=== PATIENT | female | born 1990 | race American Indian/Alaskan Native ===

== ENCOUNTER 2017-01-20 04:23 | Emergency (ER) | payer SELFPAY ==
[2017-01-20] MEDS ORDERED: TYLENOL PO ONE (04:38)
[2017-01-20 05:18] LABS: Basophils % (Auto) 0.2 % (0.0-1.8); Eosinophils % (Auto) 0.6 % (0.0-4.3); Hematocrit 39.3 % (30.3-42.9); Mean Corpuscular HGB Conc 33 % (30-34); Mean Corpuscular Hemoglobin 28 pg (28-32); Mean Corpuscular Volume 84 fl (79-97); Platelet Count 341 K/mm3 (140-440); Red Blood Count 4.65 M/mm3 (3.65-5.03); Red Cell Distribution Width 12.9 % (13.2-15.2); White Blood Count 10.1 K/mm3 (4.5-11.0)
[2017-01-20 05:20] LABS: Alanine Aminotransferase 16 units/L (7-56); Albumin 4.3 g/dL (3.9-5); Albumin/Globulin Ratio 1.2 %; Alkaline Phosphatase 59 units/L (35-129); Anion Gap 18 mmol/L; Bilirubin,Total 0.4 mg/dL (0.1-1.2); Blood Urea Nitrogen 12 mg/dL (7-17); Calcium 9.2 mg/dL (8.4-10.2); Carbon Dioxide 22 mmol/L (22-30); Chloride 102.2 mmol/L (98-107); Glucose 108 mg/dL (65-100); Lipase 14 units/L (13-60); Potassium 3.9 mmol/L (3.6-5.0); Sodium 138 mmol/L (137-145); Total Protein 7.9 g/dL (6.3-8.2)
--- NOTE | 2017-01-20 06:59 | Emergency Department Report ---
HPI - General Chief Complaint: Abdominal Pain Time Seen by Provider: 01/20/17 06:34 - HPI HPI: This is a 26-year-old Afro-[place] female who drove herself in to be seen with complaint of upper abdominal pain that began at 10 PM last night has been constant since. It is a sharp pain and associated with some nausea and vomiting. She denies any fever, vaginal bleeding, vaginal discharge, back pain , dysuria. She is not taken anything for symptoms prior to presentation. She denies having a past medical history. She has a history of migraine headaches. No recent travel or sick contacts at home. ED Past Medical Hx - Past Medical History Previous Medical History?: Yes Hx Headaches / Migraines: Yes Additional medical history: vaginal delivery x 1 - Surgical History Past Surgical History?: No - Social History Smoking Status: Never Smoker Substance Use Type: None - Medications Home Medications: Home Medications Medication Instructions Recorded Confirmed Last Taken Type HYDROcodone/APAP 5-325 [[place] 1 each PO Q6HR PRN #10 tablet 01/20/17 Unknown Rx 5/325] Ondansetron [Zofran Odt] 4 mg PO Q8H PRN #10 tab.rapdis 01/20/17 Unknown Rx ED Review of Systems ROS: Stated complaint: ABD PAIN Other details as noted in HPI Comment: All other systems reviewed and negative Constitutional: denies: chills, fever Eyes: denies: eye pain, eye discharge, vision change ENT: denies: ear pain, throat pain Respiratory: denies: cough, shortness of breath, wheezing Cardiovascular: denies: chest pain, palpitations Gastrointestinal: abdominal pain, nausea, vomiting Genitourinary: denies: urgency, dysuria, discharge Musculoskeletal: denies: back pain, joint swelling, arthralgia Skin: denies: rash, lesions Neurological: denies: headache, weakness, paresthesias Physical Exam - Physical Exam Vital Signs: Vital Signs 01/20/17 01/20/17 01/20/17 02:08 02:10 02:16 Temperature Pulse Rate Respiratory Rate Blood Pressure 101/63 101/63 O2 Sat by Pulse 100 100 100 Oximetry 01/20/17 01/20/17 01/20/17 02:20 02:26 02:30 Temperature Pulse Rate Respiratory Rate Blood Pressure 101/63 101/63 101/63 O2 Sat by Pulse 100 99 99 Oximetry 01/20/17 01/20/17 01/20/17 02:36 02:40 02:46 Temperature Pulse Rate Respiratory Rate Blood Pressure 101/70 101/70 101/70 O2 Sat by Pulse 100 100 100 Oximetry 01/20/17 01/20/17 01/20/17 02:50 02:56 03:00 Temperature Pulse Rate Respiratory Rate Blood Pressure 101/70 101/70 101/70 O2 Sat by Pulse 97 100 100 Oximetry 01/20/17 01/20/17 01/20/17 03:06 04:34 04:42 Temperature 98.2 F Pulse Rate 87 Respiratory 22 Rate Blood Pressure 111/66 154/94 111/66 O2 Sat by Pulse 100 98 88 Oximetry 01/20/17 01/20/17 01/20/17 04:46 04:50 04:56 Temperature Pulse Rate Respiratory Rate Blood Pressure 108/63 108/63 108/63 O2 Sat by Pulse 100 100 89 Oximetry 01/20/17 01/20/17 01/20/17 05:00 06:04 06:05 Temperature Pulse Rate 93 H 78 Respiratory 18 Rate Blood Pressure 108/63 118/78 137/86 O2 Sat by Pulse 97 98 Oximetry 01/20/17 01/20/17 06:11 06:17 Temperature Pulse Rate 84 Respiratory 16 18 Rate Blood Pressure 137/86 O2 Sat by Pulse 100 100 Oximetry Physical Exam: GENERAL: The patient is well-developed well-nourished. HEENT: Normocephalic. Atraumatic. Extraocular motions are intact. Patient has moist mucous membranes. Pupils equal reactive to light bilaterally. NECK: Supple. Trachea is midline. CHEST/LUNGS: Clear to auscultation. There is no respiratory distress noted. HEART/CARDIOVASCULAR: Regular. There is no tachycardia. There is no gallop rub or murmur. ABDOMEN: Abdomen is soft. There is some mild tenderness to palpation to the right upper quadrant of the abdomen. No guarding rebound tenderness. No peritoneal signs with heel strike. Patient has normal bowel sounds. There is no abdominal distention. SKIN: Skin is warm and dry. NEURO: The patient is awake, alert, and oriented. The patient is cooperative. The patient has no focal neurologic deficits. The patient has normal speech. MUSCULOSKELETAL: There is no tenderness or deformity. There is no limitation range of motion. There is no evidence of acute injury. ED Course Vital Signs 01/20/17 01/20/17 01/20/17 02:08 02:10 02:16 Temperature Pulse Rate Respiratory Rate Blood Pressure 101/63 101/63 O2 Sat by Pulse 100 100 100 Oximetry 01/20/17 01/20/17 01/20/17 02:20 02:26 02:30 Temperature Pulse Rate Respiratory Rate Blood Pressure 101/63 101/63 101/63 O2 Sat by Pulse 100 99 99 Oximetry 01/20/17 01/20/17 01/20/17 02:36 02:40 02:46 Temperature Pulse Rate Respiratory Rate Blood Pressure 101/70 101/70 101/70 O2 Sat by Pulse 100 100 100 Oximetry 01/20/17 01/20/17 01/20/17 02:50 02:56 03:00 Temperature Pulse Rate Respiratory Rate Blood Pressure 101/70 101/70 101/70 O2 Sat by Pulse 97 100 100 Oximetry 01/20/17 01/20/17 01/20/17 03:06 04:34 04:42 Temperature 98.2 F Pulse Rate 87 Respiratory 22 Rate Blood Pressure 111/66 154/94 111/66 O2 Sat by Pulse 100 98 88 Oximetry 01/20/17 01/20/17 01/20/17 04:46 04:50 04:56 Temperature Pulse Rate Respiratory Rate Blood Pressure 108/63 108/63 108/63 O2 Sat by Pulse 100 100 89 Oximetry 01/20/17 01/20/17 01/20/17 05:00 06:04 06:05 Temperature Pulse Rate 93 H 78 Respiratory 18 Rate Blood Pressure 108/63 118/78 137/86 O2 Sat by Pulse 97 98 Oximetry 01/20/17 01/20/17 06:11 06:17 Temperature Pulse Rate 84 Respiratory 16 18 Rate Blood Pressure 137/86 O2 Sat by Pulse 100 100 Oximetry ED Medical Decision Making - Lab Data Result diagrams: 01/20/17 04:46 01/20/17 04:46 - Radiology Data Radiology results: report reviewed, image reviewed interpreted by me: Abdominal x-ray shows some nonspecific nonobstructive bowel gas. Right upper quadrant abdominal ultrasound does not show any acute process. - Medical Decision Making 26-year-old female presents with abdominal pain to the upper abdomen as well as some nausea and vomiting since last night around 10 PM. Patient's labs are mostly unremarkable other than some signs of dehydration. The patient is not . There is no signs of infection in the bladder urine, elect to light abnormalities in the patient has normal belly labs including bilirubin, lipase and LFT. Abdominal ultrasound does not show any acute process. Abdominal x- ray shows nonobstructive nonspecific bowel gas. Patient was given some Zofran for nausea with improvement. She was able to pass an oral challenge. She will go home with some pain medication, anti-antiemetics and referrals for primary care. She will return to the ER with any worsening of her symptoms or any acute distress. - Differential Diagnosis past arthritis, colitis, , UTI, cholelithiasis, pancreatitis Critical Care Time: No Critical care attestation.: If time is entered above; I have spent that time in minutes in the direct care of this critically ill patient, excluding procedure time. ED Disposition Clinical Impression: Dehydration Abdominal pain Qualifiers: Abdominal location: upper abdomen, unspecified Qualified Code(s): R10.10 - Upper abdominal pain, unspecified Nausea and vomiting Qualifiers: Vomiting type: unspecified Vomiting Intractability: non-intractable Qualified Code(s): R11.2 - Nausea with vomiting, unspecified Disposition: DISCHARGED TO HOME OR SELFCARE Is pt being admited?: No Condition: Stable Instructions: Abdominal Pain (ED), Acute Nausea and Vomiting (ED), Dehydration (ED) Additional Instructions: Please follow-up with a primary care doctor in the next few days. Increase your oral rehydration. Return to the emergency department with any intractable vomiting, intractable fever, or any acute distress. You've been prescribed a medication that is sedating. Therefore this medication cannot be mixed with alcohol, or taken prior to driving, working, or being responsible for children. Prescriptions: HYDROcodone/APAP 5-325 [[place] 5/325] 1 each PO Q6HR PRN #10 tablet PRN Reason: Pain Ondansetron [Zofran Odt] 4 mg PO Q8H PRN #10 tab.rapdis PRN Reason: Nausea Referrals: PRIMARY CARE, [Primary Care Provider] - 3-5 Days [facility] [Outside] - 3-5 Days [facility] [Outside] - 3-5 Days Time of Disposition: 10:33
--- NOTE | 2017-01-20 07:52 | Ultrasound Report ---
ULTRASOUND ABDOMEN LIMITED INDICATION: RUQ abdominal pain, nausea, vomiting. COMPARISON: None similar. FINDINGS: Right upper quadrant ultrasound suggests slight hepatic coarsening. Normal hepatic contours. No focal suspicious lesions or biliary dilatation. No gallstones or pericholecystic fluid. Slight gallbladder sludge though not excluded. Gallbladder wall thickness is 3-4 mm. CBD is 4.5 mm. Pancreas, IVC and abdominal aorta appear within normal limits. Nonhydronephrotic 11.2 x 4.2 x 4.7 cm right kidney with cortical thickness of 1.4 cm. CONCLUSION: No acute right upper quadrant sonographic abnormality with slightly coarse liver and minimal gallbladder sludge possible. Please correlate. Thank you for the opportunity to participate in this patient's care.
[2017-01-20] MEDS ORDERED: ZOFRAN ODT PO ONE (08:48)
[2017-01-20 09:41] VITALS: BP 133/79
[2017-01-20 09:46] LABS: Bilirubin,Urine NEG (Negative); Blood,Urine SM (Negative); Ketones,Urine 80 mg/dL (Negative); Leukocyte Esterase,Urine NEG (Negative); Mucus,Urine 3+ /HPF; Nitrite,Urine NEG (Negative); Urobilinogen,Urine < 2.0 mg/dL (<2.0)
--- NOTE | 2017-01-20 10:04 | XRay Report ---
ABDOMEN RADIOGRAPHS INDICATION: Abdominal pain. COMPARISON: None similar. FINDINGS: Frontal abdominal radiographs demonstrate nonobstructive bowel gas pattern. Few air-containing small bowel loops in the right lower quadrant measure up to 2.1 cm caliber. No focal suspicious calcifications, pneumatosis or pneumoperitoneum. Clear visualized lung bases. Unremarkable bones. CONCLUSION: Nonobstructive bowel gas pattern, as described. Please correlate. Thank you for the opportunity to participate in this patient's care.
== END 2017-01-20 10:53 | disposition home or self-care (01) ==
LOC: ED 04:23
DX: E86.0 Dehydration (principal); R10.10 Upper abdominal pain, unspecified; G43.909 Migraine, unspecified, not intractable, without status migrainosus
CPT/HCPCS: 36415; 74020; 76705; 80053; 81001; 81025; 83690; 85025; Q0162

== ENCOUNTER 2020-01-02 20:22 | Outpatient (CLI) | payer MEDICAID ==
[2020-01-02 20:34] VITALS: BP 140/75
--- NOTE | 2020-01-02 21:30 | Ultrasound Report ---
ULTRASOUND OBSTETRIC INDICATION / CLINICAL INFORMATION: SROM . Clinical Gestational Age (GA): TECHNIQUE: Limited exam was performed COMPARISON: None available. FINDINGS: There is a single intrauterine . Heart Rate: 154 beats per minute. Position: cephalic. Cervix: closed. Length in cm (if measured): Placenta: and free of the os. Amniotic Fluid Volume: normal Amniotic Fluid Index (JACKI) in cm (9.7): . Maternal Adnexa: No significant abnormality. IMPRESSION: 1. Single, living intrauterine 2. JACKI 9.7 cm Signer Name: Del Pollock MD Signed: 01/02/2020 9:26 PM Workstation Name: [id number]
[2020-01-02 22:16] LABS: Bilirubin,Urine NEG (Negative); Blood,Urine SM (Negative); Color,Urine Yellow (Yellow); Mucus,Urine 1+ /HPF; Protein,Urine <15 mg/dL mg/dL (Negative); Urobilinogen,Urine < 2.0 mg/dL (<2.0)
== END 2020-01-02 21:53 | disposition home or self-care (01) ==
LOC: TRG 20:22
PROVIDERS: ATTEND Obstetrics & Gynecology
DX: O47.02 False labor before 37 completed weeks of gestation, second trimester (principal); Z3A.22 22 weeks gestation of pregnancy
CPT/HCPCS: 59025; 76815; 81001

== ENCOUNTER 2022-06-03 12:42 | Emergency (ER) | payer MEDICAID ==
[2022-06-03 14:09] LABS: Bacteria,Urine 2+ /HPF (Negative); Mucus,Urine 3+ /HPF
[2022-06-03 14:13] LABS: Basophils % (Auto) 0.5 % (0.0-1.8); Eosinophils # (Auto) 0.2 K/mm3 (0.0-0.4); Eosinophils % (Auto) 2.8 % (0.0-4.3); Lymphocytes # (Auto) 2.5 K/mm3 (1.2-5.4); Lymphocytes % (Auto) 44.4 % (13.4-35.0); Mean Corpuscular HGB Conc 32 % (30-34); Mean Corpuscular Volume 84 fl (79-97); Monocytes # (Auto) 0.3 K/mm3 (0.0-0.8); Monocytes % (Auto) 5.5 % (0.0-7.3); Platelet Count 354 K/mm3 (140-440); Red Blood Count 4.39 M/mm3 (3.65-5.03); Red Cell Distribution Width 13.4 % (13.2-15.2)
[2022-06-03 14:34] LABS: Color,Urine Yellow (Yellow)
--- NOTE | 2022-06-03 17:49 | Emergency Department Report ---
ED HPI - General Chief complaint: Vaginal Bleeding Stated complaint: BLEEDING 12 WKS Time Seen by Provider: 06/03/22 17:32 Source: patient Mode of arrival: Ambulatory Limitations: No Limitations - History of Present Illness Initial comments: Patient is a 31-year-old female who presents with pelvic cramping and vaginal bleeding. She is 12 weeks with a last menstrual period 03/11/2022 and a positive test on April 08, 2022. Last night she had a little bit of abdominal cramping and noticed a little bit of brown spotting on the tissue when she wiped after urinating. Today at around 1115 she noticed bright red blood when she wiped so she came immediately to the emergency department. While in our waiting room she bled through several pads so she went home to change and while she was at home she passed something that she thought might have been the fetus. She has continued to have significant vaginal bleeding since arrival. Denies any weakness or fatigue. No fevers or chills. Denies any possibility of sexually transmitted disease. She did have her first OB visit at [facility] but does not know the name of the [facility] she saw. She is a 3 para 2-0-0-2.. MD Complaint: abdominal pain, vaginal bleeding Location: pelvis Radiation: none, back Severity: moderate Severity scale (0 -10): 4 Quality: cramping Consistency: intermittent Improves with: none Worsens with: none Associated symptoms: nausea/vomiting (Nausea no vomiting). denies: headache, malaise, dysparuenia, syncope, weakness Vaginal bleeding: heavy, clots :: Yes OB History - Current : no complications OB History - Previous Pregnancies: no complications Last menstrual period: 03/11/22 Pre-chad care: followed by OB - Related Data Previous Rx's Medication Instructions Recorded Last Taken Type Vit No.179/Iron/Folic 1 each PO DAILY #30 tab 06/03/22 Unknown Rx [ Tablet] Allergies Allergy/AdvReac Type Severity Reaction Status Date / Time No Known Allergies Allergy Unverified 03/25/15 10:53 ED Review of Systems ROS: Stated complaint: BLEEDING 12 WKS Other details as noted in HPI Comment: All other systems reviewed and negative Constitutional: denies: chills, fever Eyes: denies: vision change ENT: denies: throat pain, congestion Respiratory: no symptoms reported. denies: cough, shortness of breath Cardiovascular: denies: chest pain, palpitations, edema, syncope Endocrine: denies: intolerance to cold, intolerance to heat Gastrointestinal: as per HPI Genitourinary: denies: urgency, dysuria, frequency, hematuria Musculoskeletal: as per HPI Skin: denies: rash, lesions, change in color Neurological: denies: headache, weakness, numbness, paresthesias Psychiatric: denies: anxiety, depression Hematological/Lymphatic: denies: easy bleeding, easy bruising ED Past Medical Hx - Past Medical History Hx Hypertension: No Hx Heart Attack/AMI: No Hx Diabetes: No Hx Deep Vein Thrombosis: No Hx Liver Disease: No Hx Renal Disease: No Hx Sickle Cell Disease: No Hx Headaches / Migraines: Yes Hx Seizures: No Hx Asthma: Yes ( A CHLID) Hx COPD: No Additional medical history: vaginal delivery x 2 - Surgical History Hx Pacemaker: No Hx Internal Defibrillator: No - Family History Family history: no significant - Social History Smoking Status: Never Smoker Substance Use Type: None - Medications Home Medications: Home Medications Medication Instructions Recorded Confirmed Last Taken Type Vit No.179/Iron/Folic 1 each PO DAILY #30 tab 06/03/22 Unknown Rx [ Tablet] ED Physical Exam - General Limitations: No Limitations General appearance: alert, in no apparent distress - Head Head exam: Present: atraumatic, normocephalic - Eye Eye exam: Present: normal appearance. Absent: conjunctival injection - ENT ENT exam: Present: mucous membranes moist - Neck Neck exam: Present: normal inspection. Absent: tenderness - Respiratory Respiratory exam: Absent: respiratory distress, wheezes, rales, rhonchi - Cardiovascular Cardiovascular Exam: Present: regular rate, normal rhythm, normal heart sounds - GI/Abdominal GI/Abdominal exam: Present: soft, tenderness (Mild suprapubic), normal bowel sounds. Absent: distended, guarding, rebound, rigid - External exam: Present: bleeding (With clots) Speculum exam: Present: vaginal bleeding (Marked with clots), other (What appears to be products of conception within the os which is slightly open.) Bi-manual exam: Present: normal bi-manual exam. Absent: cervical motion tendernes - Extremities Exam Extremities exam: Present: normal inspection, normal capillary refill - Back Exam Back exam: Present: normal inspection, full ROM - Neurological Exam Neurological exam: Present: alert, oriented X3 - Psychiatric Psychiatric exam: Present: normal affect, normal mood - Skin Skin exam: Present: warm, dry, intact, normal color ED Course Vital Signs 06/03/22 06/03/22 06/03/22 13:20 21:55 21:56 Temperature 98.7 F Pulse Rate 76 82 Pulse Rate [ 82 Lying] Pulse Rate [ 106 H Standing] Respiratory 18 14 Rate Blood Pressure 115/50 [Lying] Blood Pressure 128/68 115/50 [Right] Blood Pressure 133/79 [Standing] O2 Sat by Pulse 100 100 Oximetry - Reevaluation(s) Reevaluation #1: Products of conception grasped with ring forceps and gentle uterine massage allowed easy removal. Vault was cleared of copious blood and clots and bleeding slowed down to a gentle ooze. Pad count initiated. Repeat CBC, orthostatic vital signs, IV fluids ordered. Products of conception sent to lab. 06/03/22 20:48 Reevaluation #2: 06/03/22 22:05 Patient's orthostatics positive but pad count is less than 1 pad per hour. Will give her a full liter of fluids and have her return in 2 days for repeat CBC and quantitative hCG. She is to return sooner if she soaks more than 1 pad per hour. ED Medical Decision Making - Lab Data Result diagrams: 06/03/22 21:18 - Radiology Data Radiology results: [place] [address] Ultrasound Report Signed Patient: JYOTI LARIOS MR#: [id number] : 1990 Acct:[id number] Age/Sex: 31 / F ADM Date: 06/03/22 Loc: ED Attending Dr: Ordering Physician: RHETT RODRIGUEZ Date of Service: 06/03/22 Procedure(s): US OB <= 14 weeks fetus Accession Number(s): [id number] cc: RHETT RODRIGUEZ ULTRASOUND OBSTETRIC INDICATION / CLINICAL INFORMATION: vaginal bleeding. - Clinical Gestational Age (GA) in weeks, days: 12, 0 TECHNIQUE: Transabdominal. COMPARISON: None available. FINDINGS: GESTATIONAL SAC: Small fluid collection in the endometrial cavity measuring 9 x 3 mm. YOLK SAC: Not visualized. EMBRYO/FETUS: Not visualized. UTERUS: Prominent endometrial complex measuring 2.6 cm in thickness. ADNEXA: Small physiologic cysts of the left ovary. Right ovary appears normal. No adnexal mass or cyst. FREE FLUID: None. ADDITIONAL FINDINGS: None. IMPRESSION: 1. Small fluid collection in the endometrial cavity could represent a very early gestational sac. No yolk sac or pole. 2. Prominent endometrial complex measuring 2.6 cm in thickness. Correlation with serum beta hCG level would be helpful. Signer Name: Gladys Talbot MD Signed: 06/03/2022 6:03 PM Workstation Name: [id number] Transcribed By: DT Dictated By: Gary Talbot MD Electronically Authenticated By: Gary Talbot MD Signed Date/Time: 06/03/221802 DD/ 57 TD/TT: - Medical Decision Making We will have her return in 2 days for repeat CBC and quantitative hCG. She is to return sooner if she soaks more than 1 pad per hour. Or any worsening of her symptoms. Push fluids and start vitamins with iron. Critical care attestation.: If time is entered above; I have spent that time in minutes in the direct care of this critically ill patient, excluding procedure time. ED Disposition Clinical Impression: Spontaneous at 8 to 28 weeks gestation Disposition: HOME / SELF CARE / HOMELESS Is pt being admited?: No Condition: Stable Instructions: Miscarriage, [id number] Additional Instructions: Return in 2 days for repeat CBC and quantitative hCG. return sooner if you soak more than 1 pad per hour, increasing weakness/dizziness or abdominal pain. P renatal vitamins. Push fluids and increase protein in diet. Follow-up with your OB on Monday after the holiday . Prescriptions: Vit No.179/Iron/Folic [ Tablet] 1 each PO DAILY #30 tab Forms: Work/School Release Form(ED) Time of Disposition: 22:12
--- NOTE | 2022-06-03 18:07 | Ultrasound Report ---
ULTRASOUND OBSTETRIC INDICATION / CLINICAL INFORMATION: vaginal bleeding. - Clinical Gestational Age (GA) in weeks, days: 12, 0 TECHNIQUE: Transabdominal. COMPARISON: None available. FINDINGS: GESTATIONAL SAC: Small fluid collection in the endometrial cavity measuring 9 x 3 mm. YOLK SAC: Not visualized. EMBRYO/FETUS: Not visualized. UTERUS: Prominent endometrial complex measuring 2.6 cm in thickness. ADNEXA: Small physiologic cysts of the left ovary. Right ovary appears normal. No adnexal mass or cys t. FREE FLUID: None. ADDITIONAL FINDINGS: None. IMPRESSION: 1. Small fluid collection in the endometrial cavity could represent a very early gestational sac. No yolk sac or pole. 2. Prominent endometrial complex measuring 2.6 cm in thickness. Correlation with serum beta hCG level would be helpful. Signer Name: Gladys Talbot MD Signed: 06/03/2022 6:03 PM Workstation Name: [id number]
[2022-06-03] MEDS ORDERED: SODIUM CHLORIDE 0.9% 500 ML 500 ML IV ONE (20:28)
[2022-06-03 21:58] LABS: Hematocrit 31.7 % (30.3-42.9); Hemoglobin 10.4 gm/dl (10.1-14.3); Mean Corpuscular HGB Conc 33 % (30-34); Mean Corpuscular Volume 85 fl (79-97); Platelet Count 325 K/mm3 (140-440); Red Blood Count 3.74 M/mm3 (3.65-5.03); Red Cell Distribution Width 13.1 % (13.2-15.2)
[2022-06-03] MEDS ORDERED: SODIUM CHLORIDE 0.9% 1000 ML 1,000 ML IV ONE (22:07)
[2022-06-04 00:19] VITALS: BP 104/46
--- NOTE | 2022-06-04 12:55 | Ultrasound Report ---
ULTRASOUND OBSTETRIC INDICATION / CLINICAL INFORMATION: vaginal bleeding. - Clinical Gestational Age (GA) in weeks, days: 12, 0 TECHNIQUE: Transvaginal. COMPARISON: None available. FINDINGS: GESTATIONAL SAC: No identifiable gestational sac within the endometrial canal. UTERUS: Endometrial echo complex is thickened measuring 2.2 cm. Uterus measures 11.6 x 6.0 x 7.3 cm. ADNEXA: Left ovary measures 3.6 x 2.1 x 2 cm and contains a simple cyst measuring up to 3.3 cm. Right ovary measures 2.3 x 1.6 x 3.0 cm. FREE FLUID: None. ADDITIONAL FINDINGS: None. IMPRESSION: 1. No identifiable intrauterine . Findings consistent with of unknown location. Re commend follow-up with serum beta-hCG and ultrasound as indicated. 2. Prominence of the endometrial echo complex. This can be further evaluated on follow-up ultrasound as well. Signer Name: Sha Durant MD Signed: 06/04/2022 12:51 PM Workstation Name: [id number]
== END 2022-06-04 00:19 | disposition home or self-care (01) ==
LOC: ED 12:42
DX: O03.9 Complete or unspecified spontaneous abortion without complication (principal); Z3A.00 Weeks of gestation of pregnancy not specified
CPT/HCPCS: 36415; 76801; 76817; 81001; 84702; 84703; 85025; 85027; 86900; 86901; 87086; 96360; 99284; J7030; J7040